=== PATIENT | male | born 1935 | race Caucasian/White ===

== ENCOUNTER 2017-04-23 04:11 | Inpatient (IN) ==
[2017-04-23] MEDS ORDERED: HYDROmorphone 2 MG/1 ML VIAL IV PRN (05:02)
[2017-04-23] MEDS ORDERED: ONDANSETRON 4 MG/2 ML VIAL IV STA (05:03)
[2017-04-23 05:07] LABS: Basophils % 0.3 % (0.0-0.8); Eosinophils % 0.1 % (0.00-10.9); Hematocrit 46.3 VOL% (42.0-52.0); Hemoglobin 16.1 GM/DL (14.0-18.0); Immature Granulocytes % 0.4 %; Immature Granulocytes Absolute 0.04 #; Lymphocytes # 1.2 10*3/uL (1.4-4.0); Lymphocytes % 11.3 % (21.2-54.2); Mean Corpuscular HGB Conc 34.8 GM/DL (32-36); Mean Corpuscular Hemoglobin 31 PG (27-34); Mean Corpuscular Volume 89.9 FL (87-102); Mean Platelet Volume 11.4 FL (9.6-12.0); Monocytes # 0.6 10*3/uL (0.11-0.8); Monocytes % 5.5 % (1.7-12.7); Neutrophils # 8.6 10*3/uL (1.4-7.4); Neutrophils % 82.4 % (38.7-73.9); Platelet Count 186 T/CUMM (130-400); Red Blood Count 5.15 MC/CUMM (3.8-5.5); Red Cell Distribution Width 12.3 % (9.3-17.3); White Blood Count 10.4 T/CUMM (4-12)
[2017-04-23] MEDS ORDERED: HYDROmorphone 2 MG/1 ML VIAL ONE (05:11)
[2017-04-23] MEDS ORDERED: ONDANSETRON 4 MG/2 ML VIAL ONE (05:13)
[2017-04-23] MEDS: SODIUM CHLORIDE 0.9% 2,400 ML IV ONE ×2 (05:18→06:26)
[2017-04-23 05:22] LABS: Albumin 4.1 G/DL (3.4-5.0); Bilirubin,Total 0.8 MG/DL (0.2-1.0); Calcium 9.1 MG/DL (8.5-10.1); Osmolality,Calculated 279.5 MOS/KG (273-304); Potassium 4.1 MMOL/L (3.5-5.1); Total Protein 7.3 G/DL (6.4-8.3)
[2017-04-23] MEDS ORDERED: ONDANSETRON 4 MG/2 ML VIAL IV PRN (06:26)
[2017-04-23] MEDS ORDERED: SODIUM CHLORIDE 0.9% 1,000 ML IV STA (06:29)
[2017-04-23] MEDS ORDERED: SODIUM CHLORIDE 0.9% 1,000 ML IV SCH (06:30)
[2017-04-23] MEDS: PANTOPRAZOLE 40 MG VIAL IV SCH (10:08)
[2017-04-23] MEDS: DEXTROSE 5% NACL 0.45% 1,000 ML IV SCH ×2 (12:18→20:18)
[2017-04-23] MEDS: HYDROmorphone 2 MG/1 ML VIAL IV PRN (12:19)
[2017-04-24] MEDS: HYDROmorphone 2 MG/1 ML VIAL IV PRN (03:04)
[2017-04-24] MEDS: DEXTROSE 5% NACL 0.45% 1,000 ML IV SCH ×3 (04:18→19:35)
[2017-04-24 06:02] LABS: Basophils % 0.2 % (0.0-0.8); Eosinophils # 0.1 10*3/uL (0.0-0.87); Hematocrit 38.2 VOL% (42.0-52.0); Immature Granulocytes % 0.3 %; Immature Granulocytes Absolute 0.02 #; Lymphocytes # 1.1 10*3/uL (1.4-4.0); Lymphocytes % 18.1 % (21.2-54.2); Mean Corpuscular HGB Conc 34.6 GM/DL (32-36); Mean Corpuscular Hemoglobin 32 PG (27-34); Mean Platelet Volume 11.4 FL (9.6-12.0); Monocytes # 0.5 10*3/uL (0.11-0.8); Monocytes % 7.6 % (1.7-12.7); Neutrophils # 4.6 10*3/uL (1.4-7.4); Neutrophils % 72.8 % (38.7-73.9); Red Blood Count 4.15 MC/CUMM (3.8-5.5); Red Cell Distribution Width 12.7 % (9.3-17.3)
[2017-04-24 06:17] LABS: Hemoglobin 13.2 GM/DL (14.0-18.0); Platelet Count 141 T/CUMM (130-400); White Blood Count 6.3 T/CUMM (4-12)
[2017-04-24 06:31] LABS: Bilirubin,Total 0.7 MG/DL (0.2-1.0); Calcium 8.1 MG/DL (8.5-10.1); Osmolality,Calculated 280.3 MOS/KG (273-304); Potassium 4.2 MMOL/L (3.5-5.1); Total Protein 5.4 G/DL (6.4-8.3)
[2017-04-24] MEDS: PANTOPRAZOLE 40 MG VIAL IV SCH (09:50)
[2017-04-25] MEDS: DEXTROSE 5% NACL 0.45% 1,000 ML IV SCH (03:35)
[2017-04-25] MEDS: PANTOPRAZOLE 40 MG VIAL IV SCH (08:49)
[2017-04-25 12:11] VITALS: BP 151/70
== END 2017-04-25 12:53 | disposition home or self-care (01) | DRG 390 ==
LOC: N.ED 04:11 → N.EDINP 06:26 → N.2E 06:47
PROVIDERS: ADMIT Internal Medicine; ATTEND Internal Medicine

== ENCOUNTER 2017-06-11 20:02 | Inpatient (IN) ==
[2017-06-11 21:19] LABS: Basophils % 0.3 % (0.0-0.8); Eosinophils % 0.3 % (0.00-10.9); Hematocrit 43.2 VOL% (42.0-52.0); Hemoglobin 14.9 GM/DL (14.0-18.0); Immature Granulocytes % 0.4 %; Immature Granulocytes Absolute 0.04 #; Lymphocytes # 1.2 10*3/uL (1.4-4.0); Lymphocytes % 11.1 % (21.2-54.2); Mean Corpuscular HGB Conc 34.5 GM/DL (32-36); Mean Corpuscular Hemoglobin 31 PG (27-34); Mean Corpuscular Volume 90.2 FL (87-102); Mean Platelet Volume 11.4 FL (9.6-12.0); Monocytes # 0.7 10*3/uL (0.11-0.8); Monocytes % 6.4 % (1.7-12.7); Neutrophils # 8.6 10*3/uL (1.4-7.4); Neutrophils % 81.5 % (38.7-73.9); Platelet Count 180 T/CUMM (130-400); Red Blood Count 4.79 MC/CUMM (3.8-5.5); Red Cell Distribution Width 12.5 % (9.3-17.3); White Blood Count 10.5 T/CUMM (4-12)
[2017-06-11 21:31] LABS: INR 0.9
[2017-06-11] MEDS ORDERED: HYDROmorphone 2 MG/1 ML VIAL IV STA (21:39)
[2017-06-11] MEDS ORDERED: ONDANSETRON 4 MG/2 ML VIAL IV STA (21:39)
[2017-06-11 21:40] LABS: Albumin 4.3 G/DL (3.4-5.0); Bilirubin,Total 0.8 MG/DL (0.2-1.0); Calcium 9.4 MG/DL (8.5-10.1); Osmolality,Calculated 278.5 MOS/KG (273-304); Total Protein 7.4 G/DL (6.4-8.3)
[2017-06-11] MEDS ORDERED: ONDANSETRON 4 MG/2 ML VIAL ONE (21:46)
[2017-06-11] MEDS ORDERED: HYDROmorphone 2 MG/1 ML VIAL ONE (21:46)
[2017-06-11] MEDS ORDERED: ACETAMINOPHEN 325 MG TABLET PO PRN (22:16)
[2017-06-11] MEDS: DEXTROSE 5% LACTATED RINGERS 1,000 ML IV SCH (23:49)
[2017-06-12] MEDS: ONDANSETRON 4 MG/2 ML VIAL IV PRN ×4 (01:59→20:10)
[2017-06-12] MEDS: HYDROmorphone 2 MG/1 ML VIAL IV PRN ×4 (02:00→20:10)
[2017-06-12 02:33] LABS: Apearance,Urine CLEAR (Clear); Bilirubin,Urine Negative (Negative); Blood, Urine Negative (Negative); Glucose,Urine (UA) Negative (Negative); Ketones,Urine 20 mg/dL (Negative); Nitrite,Urine Negative (Negative); Protein,Urine Negative; RBC,Urine 1 /HPF (0-4); Squamous Epithelial Cell,Urine Occasional /HPF (0-10); Urine Color Yellow (Yellow); Urine Specific Gravity > 1.060 (1.001-1.035); Urine Urobilinogen < 2.0 EU/DL (0.2-1.0); WBC,Urine <1 /HPF (0-6)
[2017-06-12] MEDS: DEXTROSE 5% LACTATED RINGERS 1,000 ML IV SCH ×3 (07:58→23:20)
[2017-06-12] MEDS ORDERED: cefOXitin 2,000 MG in SYRINGE 1 EACH IV ONE (07:59)
[2017-06-12] MEDS ORDERED: PANTOPRAZOLE 40 MG TABLET PO SCH (09:00)
[2017-06-12] MEDS: ENOXAPARIN 40 MG/0.4 ML SYRINGE SUBCUT SCH (09:21)
[2017-06-12] MEDS ORDERED: PROMETHAZINE 25 MG/1 ML VIAL IM PRN (20:09)
[2017-06-12] MEDS: PANTOPRAZOLE 40 MG VIAL IV SCH (21:43)
[2017-06-13] MEDS: HYDROmorphone 2 MG/1 ML VIAL IV PRN (01:10)
[2017-06-13 06:48] LABS: Basophils % 0.2 % (0.0-0.8); Eosinophils % 0.7 % (0.00-10.9); Hematocrit 39.4 VOL% (42.0-52.0); Hemoglobin 13.1 GM/DL (14.0-18.0); Immature Granulocytes % 0.2 %; Immature Granulocytes Absolute 0.01 #; Lymphocytes # 1.3 10*3/uL (1.4-4.0); Lymphocytes % 23.4 % (21.2-54.2); Mean Corpuscular HGB Conc 33.2 GM/DL (32-36); Mean Corpuscular Hemoglobin 32 PG (27-34); Mean Corpuscular Volume 94.9 FL (87-102); Mean Platelet Volume 11.6 FL (9.6-12.0); Monocytes # 0.5 10*3/uL (0.11-0.8); Monocytes % 8.8 % (1.7-12.7); Neutrophils # 3.7 10*3/uL (1.4-7.4); Neutrophils % 66.7 % (38.7-73.9); Platelet Count 145 T/CUMM (130-400); Red Blood Count 4.15 MC/CUMM (3.8-5.5); Red Cell Distribution Width 12.9 % (9.3-17.3); White Blood Count 5.5 T/CUMM (4-12)
[2017-06-13 07:12] LABS: Eosinophils 2 % (0-10); Giant Platelets Few; Hypochromasia 1+; Lymphocytes 22 % (20-55); Ovalocytes Slight; Platelet Estimate Normal; Segmented Neutrophils 68 % (50-85); Total Cells Counted 100
[2017-06-13 07:15] LABS: Calcium 8.3 MG/DL (8.5-10.1); Osmolality,Calculated 282.1 MOS/KG (273-304); Potassium 3.9 MMOL/L (3.5-5.1)
[2017-06-13] MEDS: DEXTROSE 5% LACTATED RINGERS 1,000 ML IV SCH ×2 (07:30→17:54)
[2017-06-13] MEDS: PANTOPRAZOLE 40 MG VIAL IV SCH (09:03)
[2017-06-13] MEDS ORDERED: ROPIVACAINE 0.5% 30 ML VIAL ONE (12:13)
[2017-06-13] MEDS ORDERED: MIDAZOLAM 2 MG/2 ML VIAL ONE ×3 (12:16→14:24)
[2017-06-13] MEDS ORDERED: MIDAZOLAM 2 MG/2 ML VIAL IV ONE (13:24)
[2017-06-13] MEDS ORDERED: NALOXONE 0.4 MG/ML VIAL IV PRN (14:17)
[2017-06-13] MEDS ORDERED: GLYCOPYRROLATE 0.4 MG/2 ML VIAL ONE (14:24)
[2017-06-13] MEDS ORDERED: fentaNYL 100 MCG/2 ML VIAL ONE (14:24)
[2017-06-13] MEDS ORDERED: PROPOFOL 200 MG/20 ML VIAL IV ONE (14:24)
[2017-06-13] MEDS ORDERED: KETOROLAC 30 MG/1 ML VIAL ONE (14:24)
[2017-06-13] MEDS ORDERED: ONDANSETRON 4 MG/2 ML VIAL ONE (14:24)
[2017-06-13] MEDS ORDERED: SEVOFLURANE 1 UNIT/15 MINUTE INH ONE (14:24)
[2017-06-13] MEDS ORDERED: NEOSTIGMINE 10 MG/10 ML VIAL ONE (14:25)
[2017-06-13] MEDS ORDERED: ROCURONIUM 100 MG/10 ML VIAL IV ONE (14:25)
[2017-06-13] MEDS ORDERED: ACETAMINOPHEN 1,000 MG/100 ML VIAL IV ONE (14:25)
[2017-06-13] MEDS ORDERED: LACTATED RINGERS 1,000 ML IV ONE (14:25)
[2017-06-13] MEDS ORDERED: HYDROmorphone PCA 30 MG/30 ML SYRINGE IV ONE (14:34)
[2017-06-13] MEDS: HYDROmorphone PCA 30 MG/30 ML SYRINGE IV SCH (14:36)
[2017-06-13] MEDS: KETOROLAC 15 MG/1 ML VIAL IV SCH ×2 (16:49→20:42)
[2017-06-14] MEDS: DEXTROSE 5% LACTATED RINGERS 1,000 ML IV SCH ×2 (01:36→09:07)
[2017-06-14] MEDS: KETOROLAC 15 MG/1 ML VIAL IV SCH ×4 (02:25→20:38)
[2017-06-14 05:40] LABS: Basophils % 0.2 % (0.0-0.8); Eosinophils % 0.2 % (0.00-10.9); Hematocrit 37.4 VOL% (42.0-52.0); Hemoglobin 12.3 GM/DL (14.0-18.0); Immature Granulocytes % 0.2 %; Immature Granulocytes Absolute 0.01 #; Lymphocytes % 18.4 % (21.2-54.2); Mean Corpuscular HGB Conc 32.9 GM/DL (32-36); Mean Corpuscular Hemoglobin 31 PG (27-34); Mean Corpuscular Volume 95.2 FL (87-102); Mean Platelet Volume 11.8 FL (9.6-12.0); Monocytes # 0.7 10*3/uL (0.11-0.8); Monocytes % 12.1 % (1.7-12.7); Neutrophils # 3.7 10*3/uL (1.4-7.4); Neutrophils % 68.9 % (38.7-73.9); Platelet Count 126 T/CUMM (130-400); Red Blood Count 3.93 MC/CUMM (3.8-5.5); Red Cell Distribution Width 12.6 % (9.3-17.3); White Blood Count 5.4 T/CUMM (4-12)
[2017-06-14 06:02] LABS: Calcium 7.7 MG/DL (8.5-10.1); Magnesium 1.8 MG/DL (1.8-2.4); Osmolality,Calculated 279.4 MOS/KG (273-304); Potassium 3.8 MMOL/L (3.5-5.1)
[2017-06-14 06:28] LABS: Eosinophils 1 % (0-10); Giant Platelets Few; Hypochromasia 1+; Lymphocytes 17 % (20-55); Platelet Estimate Normal; Segmented Neutrophils 71 % (50-85); Total Cells Counted 100
[2017-06-14] MEDS: PANTOPRAZOLE 40 MG VIAL IV SCH (08:52)
[2017-06-14] MEDS: METOPROLOL TARTRATE 25 MG TABLET PO SCH (08:52)
[2017-06-14] MEDS: DEXT 5% NACL 0.45% KCL 20 MEQ 20 MEQ/1,000 ML BAG IV SCH ×2 (08:52→23:47)
[2017-06-14] MEDS ORDERED: ALUMINUM/MAGNES/SIMETH MAX STR 30 ML UDCUP PO PRN (12:18)
[2017-06-14] MEDS: ONDANSETRON 4 MG/2 ML VIAL IV PRN (20:33)
[2017-06-15] MEDS: KETOROLAC 15 MG/1 ML VIAL IV SCH ×4 (01:58→20:27)
[2017-06-15 05:27] LABS: Basophils % 0.2 % (0.0-0.8); Eosinophils # 0.1 10*3/uL (0.0-0.87); Eosinophils % 1.4 % (0.00-10.9); Hematocrit 33.7 VOL% (42.0-52.0); Hemoglobin 11.6 GM/DL (14.0-18.0); Immature Granulocytes % 0.4 %; Immature Granulocytes Absolute 0.02 #; Lymphocytes # 0.9 10*3/uL (1.4-4.0); Lymphocytes % 18.3 % (21.2-54.2); Mean Corpuscular HGB Conc 34.4 GM/DL (32-36); Mean Corpuscular Hemoglobin 31 PG (27-34); Mean Corpuscular Volume 91.3 FL (87-102); Mean Platelet Volume 11.3 FL (9.6-12.0); Monocytes # 0.7 10*3/uL (0.11-0.8); Monocytes % 13.2 % (1.7-12.7); Neutrophils # 3.3 10*3/uL (1.4-7.4); Neutrophils % 66.5 % (38.7-73.9); Platelet Count 125 T/CUMM (130-400); Red Blood Count 3.69 MC/CUMM (3.8-5.5); Red Cell Distribution Width 12.2 % (9.3-17.3); White Blood Count 4.9 T/CUMM (4-12)
[2017-06-15 05:55] LABS: Calcium 7.5 MG/DL (8.5-10.1); Magnesium 1.9 MG/DL (1.8-2.4); Osmolality,Calculated 277.5 MOS/KG (273-304); Potassium 3.9 MMOL/L (3.5-5.1)
[2017-06-15 06:35] LABS: Hypochromasia Slight; Microcytosis Slight
[2017-06-15] MEDS: METOPROLOL TARTRATE 25 MG TABLET PO SCH (08:15)
[2017-06-15] MEDS: PANTOPRAZOLE 40 MG VIAL IV SCH (08:15)
[2017-06-15] MEDS: ENOXAPARIN 40 MG/0.4 ML SYRINGE SUBCUT SCH (08:15)
[2017-06-15] MEDS: HYDROmorphone PCA 30 MG/30 ML SYRINGE IV SCH (09:01)
[2017-06-15] MEDS ORDERED: HYDROmorphone 2 MG/1 ML VIAL IV PRN (12:06)
[2017-06-15] MEDS: DEXT 5% NACL 0.45% KCL 20 MEQ 20 MEQ/1,000 ML BAG IV SCH (13:10)
[2017-06-16] MEDS: KETOROLAC 15 MG/1 ML VIAL IV SCH ×2 (02:42→09:50)
[2017-06-16 08:08] VITALS: BP 141/68
[2017-06-16] MEDS: METOPROLOL TARTRATE 25 MG TABLET PO SCH (09:53)
[2017-06-16] MEDS: PANTOPRAZOLE 40 MG VIAL IV SCH (09:54)
[2017-06-16] MEDS: ENOXAPARIN 40 MG/0.4 ML SYRINGE SUBCUT SCH (09:55)
== END 2017-06-16 13:45 | disposition home or self-care (01) | DRG 331 ==
LOC: N.ED 20:02 → N.EDINP 22:16 → N.3E 22:36
PROVIDERS: ADMIT Surgery; ATTEND Surgery

== ENCOUNTER 2018-04-26 15:06 | Observation (INO) ==
[2018-04-26] MEDS ORDERED: ONDANSETRON 4 MG/2 ML VIAL IV STA ×2 (15:53→19:22)
[2018-04-26] MEDS ORDERED: METOPROLOL TARTRATE 5 MG/5 ML VIAL IV STA (15:53)
[2018-04-26] MEDS ORDERED: fentaNYL 100 MCG/2 ML VIAL IV STA ×2 (15:55→17:45)
[2018-04-26 16:18] LABS: Basophils % 0.2 % (0.0-0.8); Eosinophils % 0.4 % (0.00-10.9); Hematocrit 43.1 VOL% (42.0-52.0); Hemoglobin 14.6 GM/DL (14.0-18.0); Immature Granulocytes % 0.2 %; Immature Granulocytes Absolute 0.02 #; Lymphocytes # 1.5 10*3/uL (1.4-4.0); Mean Corpuscular HGB Conc 33.9 GM/DL (32-36); Mean Corpuscular Hemoglobin 31 PG (27-34); Mean Corpuscular Volume 91.7 FL (87-102); Mean Platelet Volume 11.2 FL (9.6-12.0); Monocytes # 0.5 10*3/uL (0.11-0.8); Neutrophils # 7.1 10*3/uL (1.4-7.4); Neutrophils % 78.2 % (38.7-73.9); Platelet Count 159 T/CUMM (130-400); Red Cell Distribution Width 12.1 % (9.3-17.3)
[2018-04-26 16:46] LABS: Lactic Acid 2.3 MMOL/L (0.4-2.0)
[2018-04-26 16:53] LABS: Alanine Aminotransferase 26 U/L (16-61); Alkaline Phosphatase 26 U/L (45-117); Aspartate Amino Transferase 21 U/L (0-37); Blood Urea Nitrogen 15 MG/DL (7-18); Calcium 9.6 MG/DL (8.5-10.1); Glucose 114 MG/DL (74-106); Osmolality,Calculated 280.4 MOS/KG (273-304); Potassium 3.8 MMOL/L (3.5-5.1); Sodium 140 MMOL/L (136-145); Total Protein 7.4 G/DL (6.4-8.3)
[2018-04-26 17:07] LABS: Apearance,Urine CLEAR (Clear); Bilirubin,Urine Negative (Negative); Blood, Urine Negative (Negative); Glucose,Urine (UA) Negative (Negative); Hyaline Casts,Urine 1 /LPF (0-3); Ketones,Urine Negative (Negative); Mucus,Urine Occasional /LPF (Occasional); Nitrite,Urine Negative (Negative); Protein,Urine Negative; RBC,Urine <1 /HPF (0-4); Urine Color Yellow (Yellow); Urine Urobilinogen < 2.0 EU/DL (0.2-1.0); WBC,Urine 1 /HPF (0-6)
[2018-04-26] MEDS ORDERED: LACTATED RINGERS 1,000 ML IV ONE (17:21)
[2018-04-26] MEDS ORDERED: ONDANSETRON 4 MG/2 ML VIAL IV PRN (19:19)
[2018-04-26] MEDS ORDERED: HYDROmorphone 2 MG/1 ML VIAL IV STA (19:56)
[2018-04-26] MEDS: DEXTROSE 5% LACTATED RINGERS 1,000 ML IV SCH (20:48)
[2018-04-26] MEDS ORDERED: PHENOL 1.4% THROAT SPRAY 177 ML BOTTLE PO PRN (22:00)
[2018-04-26] MEDS: HYDROmorphone 2 MG/1 ML VIAL IV PRN (22:36)
[2018-04-27] MEDS: HYDROmorphone 2 MG/1 ML VIAL IV PRN ×3 (02:53→19:36)
[2018-04-27] MEDS: DEXTROSE 5% LACTATED RINGERS 1,000 ML IV SCH ×3 (03:51→19:40)
[2018-04-27 05:24] LABS: Basophils % 0.3 % (0.0-0.8); Eosinophils % 0.3 % (0.00-10.9); Hematocrit 41.2 VOL% (42.0-52.0); Hemoglobin 13.9 GM/DL (14.0-18.0); Immature Granulocytes % 0.3 %; Immature Granulocytes Absolute 0.02 #; Lymphocytes # 1.3 10*3/uL (1.4-4.0); Mean Corpuscular HGB Conc 33.7 GM/DL (32-36); Mean Corpuscular Hemoglobin 31 PG (27-34); Mean Corpuscular Volume 92.4 FL (87-102); Mean Platelet Volume 11.1 FL (9.6-12.0); Monocytes # 0.5 10*3/uL (0.11-0.8); Monocytes % 7.1 % (1.7-12.7); Neutrophils # 5.6 10*3/uL (1.4-7.4); Platelet Count 147 T/CUMM (130-400); Red Blood Count 4.46 MC/CUMM (3.8-5.5); Red Cell Distribution Width 12.2 % (9.3-17.3); White Blood Count 7.4 T/CUMM (4-12)
[2018-04-27 06:03] LABS: Albumin 3.2 G/DL (3.4-5.0); Bilirubin,Total 0.8 MG/DL (0.2-1.0); Calcium 8.6 MG/DL (8.5-10.1); Osmolality,Calculated 279.4 MOS/KG (273-304); Potassium 3.8 MMOL/L (3.5-5.1); Total Protein 6.3 G/DL (6.4-8.3)
[2018-04-27] MEDS: ENOXAPARIN 40 MG/0.4 ML SYRINGE SUBCUT SCH (08:31)
[2018-04-28] MEDS: HYDROmorphone 2 MG/1 ML VIAL IV PRN (01:37)
[2018-04-28] MEDS: DEXTROSE 5% LACTATED RINGERS 1,000 ML IV SCH ×3 (04:58→21:22)
[2018-04-28 08:56] LABS: Calcium 8.4 MG/DL (8.5-10.1); Osmolality,Calculated 277.4 MOS/KG (273-304); Potassium 3.6 MMOL/L (3.5-5.1)
[2018-04-28] MEDS: ENOXAPARIN 40 MG/0.4 ML SYRINGE SUBCUT SCH (09:10)
[2018-04-29] MEDS: DEXTROSE 5% LACTATED RINGERS 1,000 ML IV SCH (05:39)
[2018-04-29] MEDS: ENOXAPARIN 40 MG/0.4 ML SYRINGE SUBCUT SCH (09:12)
[2018-04-29 12:26] VITALS: BP 139/85
== END 2018-04-29 13:41 | disposition home or self-care (01) ==
LOC: N.ED 15:06 → N.EDINP 15:06 → N.3E 20:19
PROVIDERS: ADMIT Surgery; ATTEND Surgery

== ENCOUNTER 2018-08-22 04:39 | Observation (INO) ==
[2018-08-22] MEDS ORDERED: SODIUM CHLORIDE 0.9% 1,000 ML IV STA (06:12)
[2018-08-22] MEDS ORDERED: ONDANSETRON 4 MG/2 ML VIAL IV STA (06:12)
[2018-08-22] MEDS ORDERED: fentaNYL 100 MCG/2 ML VIAL IV STA ×2 (06:13→07:56)
[2018-08-22 06:19] LABS: Basophils % 0.4 % (0.0-0.8); Eosinophils # 0.1 10*3/uL (0.0-0.87); Eosinophils % 1.1 % (0.00-10.9); Hematocrit 44.6 VOL% (42.0-52.0); Hemoglobin 14.5 GM/DL (14.0-18.0); Immature Granulocytes % 0.7 %; Immature Granulocytes Absolute 0.06 #; Lymphocytes # 1.2 10*3/uL (1.4-4.0); Lymphocytes % 14.3 % (21.2-54.2); Mean Corpuscular HGB Conc 32.5 GM/DL (32-36); Mean Corpuscular Hemoglobin 31 PG (27-34); Mean Corpuscular Volume 94.7 FL (87-102); Mean Platelet Volume 11.2 FL (9.6-12.0); Monocytes # 0.5 10*3/uL (0.11-0.8); Neutrophils # 6.6 10*3/uL (1.4-7.4); Neutrophils % 77.5 % (38.7-73.9); Platelet Count 148 T/CUMM (130-400); Red Blood Count 4.71 MC/CUMM (3.8-5.5); Red Cell Distribution Width 13.1 % (9.3-17.3); White Blood Count 8.5 T/CUMM (4-12)
[2018-08-22 06:32] LABS: Albumin 3.7 G/DL (3.4-5.0); Bilirubin,Total 0.7 MG/DL (0.2-1.0); Calcium 9.2 MG/DL (8.5-10.1); Osmolality,Calculated 282.4 MOS/KG (273-304); Potassium 3.8 MMOL/L (3.5-5.1); Total Protein 7.2 G/DL (6.4-8.3)
[2018-08-22 07:05] LABS: Apearance,Urine CLEAR (Clear); Bilirubin,Urine Negative (Negative); Blood, Urine Negative (Negative); Glucose,Urine (UA) Negative (Negative); Ketones,Urine Negative (Negative); Mucus,Urine Occasional /LPF (Occasional); Nitrite,Urine Negative (Negative); Protein,Urine Negative; RBC,Urine 2 /HPF (0-4); Urine Color Yellow (Yellow); Urine Specific Gravity 1.014 (1.001-1.035); Urine Urobilinogen < 2.0 EU/DL (0.2-1.0); WBC,Urine 1 /HPF (0-6)
[2018-08-22] MEDS ORDERED: ACETAMINOPHEN 325 MG TABLET PO PRN (08:02)
[2018-08-22] MEDS ORDERED: ONDANSETRON 4 MG/2 ML VIAL IV PRN (08:02)
[2018-08-22] MEDS ORDERED: PROMETHAZINE 25 MG/1 ML VIAL IM PRN (08:02)
[2018-08-22 08:35] LABS: Risk Ratio 3.31; Thyroid Stimulating Hormone 6.32 uIU/ml (0.358-3.74); VLDL CHOLESTEROL 14.6 MG/DL
[2018-08-22] MEDS: LACTATED RINGERS 1,000 ML IV SCH ×3 (09:50→23:55)
[2018-08-22] MEDS ORDERED: POLYVINYL ALCOHOL 1.4% OPH SOLN 15 ML BOTTLE BOTH EYES PRN (10:45)
[2018-08-22] MEDS ORDERED: KETOROLAC 15 MG/1 ML VIAL IV PRN (11:53)
[2018-08-23 05:34] LABS: Basophils % 0.4 % (0.0-0.8); Eosinophils # 0.1 10*3/uL (0.0-0.87); Hematocrit 39.2 VOL% (42.0-52.0); Hemoglobin 12.7 GM/DL (14.0-18.0); Immature Granulocytes % 0.4 %; Immature Granulocytes Absolute 0.02 #; Lymphocytes # 1.3 10*3/uL (1.4-4.0); Lymphocytes % 27.7 % (21.2-54.2); Mean Corpuscular HGB Conc 32.4 GM/DL (32-36); Mean Corpuscular Hemoglobin 31 PG (27-34); Mean Corpuscular Volume 95.1 FL (87-102); Monocytes # 0.4 10*3/uL (0.11-0.8); Monocytes % 8.1 % (1.7-12.7); Neutrophils # 2.8 10*3/uL (1.4-7.4); Neutrophils % 61.4 % (38.7-73.9); Platelet Count 117 T/CUMM (130-400); Red Blood Count 4.12 MC/CUMM (3.8-5.5); Red Cell Distribution Width 13.2 % (9.3-17.3); White Blood Count 4.6 T/CUMM (4-12)
[2018-08-23 05:51] LABS: Albumin 2.9 G/DL (3.4-5.0); Bilirubin,Total 0.7 MG/DL (0.2-1.0); Osmolality,Calculated 282.1 MOS/KG (273-304); Total Protein 5.6 G/DL (6.4-8.3)
[2018-08-23] MEDS: LACTATED RINGERS 1,000 ML IV SCH (08:53)
[2018-08-23] MEDS ORDERED: METOPROLOL TARTRATE 25 MG TABLET PO SCH (09:00)
[2018-08-23] MEDS ORDERED: [UNRECOGNIZED DRUG - OTHER] PO SCH (09:00)
[2018-08-23 11:25] VITALS: BP 121/61
== END 2018-08-23 12:14 | disposition home or self-care (01) ==
LOC: N.EDINP 04:39 → N.ED 04:39 → SUATTDRO 08:02 → N.EDINP 09:07 → N.5E 09:22
PROVIDERS: ADMIT Internal Medicine; ATTEND Internal Medicine Nephrology

== ENCOUNTER 2019-02-21 01:14 | Inpatient (IN) ==
[2019-02-21] MEDS ORDERED: PANTOPRAZOLE 40 MG VIAL IV STA (01:30)
[2019-02-21] MEDS ORDERED: ONDANSETRON 4 MG/2 ML VIAL IV STA (01:30)
[2019-02-21] MEDS ORDERED: HYDROmorphone 2 MG/1 ML VIAL IV STA (01:30)
[2019-02-21] MEDS ORDERED: SODIUM CHLORIDE 0.9% 500 ML IV STA (01:30)
[2019-02-21 02:14] LABS: Basophils # 0.1 10*3/uL (0.0-0.2); Basophils % 0.5 % (0.0-0.8); Eosinophils # 0.1 10*3/uL (0.0-0.87); Eosinophils % 0.5 % (0.00-10.9); Hematocrit 44.6 VOL% (42.0-52.0); Hemoglobin 15.3 GM/DL (14.0-18.0); Immature Granulocytes % 0.4 %; Immature Granulocytes Absolute 0.04 #; Lymphocytes % 9.9 % (21.2-54.2); Mean Corpuscular HGB Conc 34.3 GM/DL (32-36); Mean Corpuscular Volume 90.1 FL (87-102); Mean Platelet Volume 11.7 FL (9.6-12.0); Monocytes % 6.3 % (1.7-12.7); Neutrophils % 82.4 % (38.7-73.9); Platelet Count 164 T/CUMM (130-400); Red Blood Count 4.95 MC/CUMM (3.8-5.5); Red Cell Distribution Width 12.6 % (9.3-17.3); White Blood Count 10.2 T/CUMM (4-12)
[2019-02-21 02:45] LABS: Albumin 3.9 G/DL (3.4-5.0); Bilirubin,Total 0.8 MG/DL (0.2-1.0); Calcium 9.4 MG/DL (8.5-10.1); Osmolality,Calculated 283.3 MOS/KG (273-304); Total Protein 7.5 G/DL (6.4-8.3)
[2019-02-21 05:02] LABS: Apearance,Urine CLEAR (Clear); Bilirubin,Urine Negative (Negative); Blood, Urine Negative (Negative); Glucose,Urine (UA) Negative (Negative); Hyaline Casts,Urine 1 /LPF (0-3); Ketones,Urine 5 mg/dL (Negative); Mucus,Urine Occasional /LPF (Occasional); Nitrite,Urine Negative (Negative); Protein,Urine Negative; RBC,Urine 3 /HPF (0-4); Urine Color Yellow (Yellow); Urine Specific Gravity > 1.060 (1.001-1.035); Urine Urobilinogen < 2.0 EU/DL (0.2-1.0); WBC,Urine 1 /HPF (0-6)
[2019-02-21] MEDS ORDERED: HYDROmorphone 2 MG/1 ML VIAL IV PRN (05:08)
[2019-02-21] MEDS ORDERED: ACETAMINOPHEN 325 MG TABLET PO PRN (05:08)
[2019-02-21] MEDS: ONDANSETRON 4 MG/2 ML VIAL IV PRN ×3 (06:29→19:22)
[2019-02-21] MEDS: SODIUM CHLORIDE 0.9% 1,000 ML IV SCH ×2 (06:29→15:43)
[2019-02-21] MEDS: FAMOTIDINE 20 MG/2 ML VIAL IV SCH ×2 (09:03→20:38)
[2019-02-22] MEDS: SODIUM CHLORIDE 0.9% 1,000 ML IV SCH (01:09)
[2019-02-22 05:30] LABS: Basophils % 0.3 % (0.0-0.8); Eosinophils # 0.1 10*3/uL (0.0-0.87); Eosinophils % 1.6 % (0.00-10.9); Hematocrit 37.5 VOL% (42.0-52.0); Hemoglobin 12.4 GM/DL (14.0-18.0); Immature Granulocytes % 0.2 %; Immature Granulocytes Absolute 0.01 #; Lymphocytes # 1.3 10*3/uL (1.4-4.0); Lymphocytes % 22.3 % (21.2-54.2); Mean Corpuscular HGB Conc 33.1 GM/DL (32-36); Mean Corpuscular Volume 93.1 FL (87-102); Mean Platelet Volume 11.2 FL (9.6-12.0); Monocytes % 9.1 % (1.7-12.7); Neutrophils % 66.5 % (38.7-73.9); Platelet Count 132 T/CUMM (130-400); Red Blood Count 4.03 MC/CUMM (3.8-5.5); Red Cell Distribution Width 12.9 % (9.3-17.3); White Blood Count 5.7 T/CUMM (4-12)
[2019-02-22 05:52] LABS: Albumin 2.8 G/DL (3.4-5.0); Bilirubin,Total 1.5 MG/DL (0.2-1.0); Calcium 8.1 MG/DL (8.5-10.1); Osmolality,Calculated 287.7 MOS/KG (273-304); Total Protein 5.6 G/DL (6.4-8.3)
[2019-02-22] MEDS: FAMOTIDINE 20 MG/2 ML VIAL IV SCH (09:06)
[2019-02-22 13:07] VITALS: BP 134/78
== END 2019-02-22 13:50 | disposition home or self-care (01) | DRG 390 ==
LOC: N.ED 01:14 → N.EDINP 04:30 → N.3E 04:53
PROVIDERS: ADMIT Surgery; ATTEND Surgery

== ENCOUNTER 2019-05-02 16:14 | Inpatient (IN) ==
[2019-05-02] MEDS ORDERED: SODIUM CHLORIDE 0.9% 500 ML IV STA (19:49)
[2019-05-02] MEDS ORDERED: ONDANSETRON 4 MG/2 ML VIAL IV STA (19:49)
[2019-05-02] MEDS ORDERED: fentaNYL 100 MCG/2 ML VIAL IV STA (19:50)
[2019-05-02] MEDS ORDERED: FAMOTIDINE 20 MG/2 ML VIAL IV STA (19:50)
[2019-05-02 20:14] LABS: Basophils % 0.2 % (0.0-0.8); Eosinophils % 0.1 % (0.00-10.9); Hematocrit 42.8 VOL% (42.0-52.0); Hemoglobin 14.8 GM/DL (14.0-18.0); Immature Granulocytes % 0.3 %; Immature Granulocytes Absolute 0.03 #; Lymphocytes # 0.9 10*3/uL (1.4-4.0); Lymphocytes % 8.4 % (21.2-54.2); Mean Corpuscular HGB Conc 34.6 GM/DL (32-36); Mean Corpuscular Volume 90.3 FL (87-102); Mean Platelet Volume 10.8 FL (9.6-12.0); Monocytes % 5.3 % (1.7-12.7); Neutrophils % 85.7 % (38.7-73.9); Platelet Count 181 T/CUMM (130-400); Red Blood Count 4.74 MC/CUMM (3.8-5.5); Red Cell Distribution Width 12.5 % (9.3-17.3); White Blood Count 10.2 T/CUMM (4-12)
[2019-05-02 20:39] LABS: Albumin 4.1 G/DL (3.4-5.0); Bilirubin,Total 0.7 MG/DL (0.2-1.0); Calcium 9.3 MG/DL (8.5-10.1); Osmolality,Calculated 277.7 MOS/KG (273-304)
[2019-05-02] MEDS ORDERED: KETOROLAC 30 MG/1 ML VIAL IM STA (21:05)
[2019-05-02 21:22] LABS: Apearance,Urine CLEAR (Clear); Bilirubin,Urine Negative (Negative); Blood, Urine Negative (Negative); Glucose,Urine (UA) Negative (Negative); Hyaline Casts,Urine 5 /LPF (0-3); Ketones,Urine 20 mg/dL (Negative); Mucus,Urine Many /LPF (Occasional); Nitrite,Urine Negative (Negative); Protein,Urine 30 MG/DL; RBC,Urine 3 /HPF (0-4); Squamous Epithelial Cell,Urine Occasional /HPF (0-10); Urine Color Yellow (Yellow); Urine Specific Gravity 1.023 (1.001-1.035); Urine Urobilinogen < 2.0 EU/DL (0.2-1.0); WBC,Urine <1 /HPF (0-6)
[2019-05-02] MEDS ORDERED: KETOROLAC 15 MG/1 ML VIAL IV ONE (23:47)
[2019-05-03] MEDS: SODIUM CHLORIDE 0.9% 1,000 ML IV SCH ×3 (01:46→23:40)
[2019-05-03] MEDS: ONDANSETRON 4 MG/2 ML VIAL IV PRN ×2 (02:24→08:57)
[2019-05-03] MEDS: fentaNYL 100 MCG/2 ML VIAL IV PRN ×3 (02:25→11:25)
[2019-05-03] MEDS: FAMOTIDINE 20 MG/2 ML VIAL IV SCH ×2 (08:59→20:02)
[2019-05-03] MEDS ORDERED: PHENOL 1.4% THROAT SPRAY 177 ML BOTTLE PO PRN (10:29)
[2019-05-03] MEDS: PROMETHAZINE 25 MG/1 ML VIAL IM PRN ×2 (13:33→20:03)
[2019-05-03] MEDS: HYDROmorphone 2 MG/1 ML VIAL IV PRN ×2 (15:34→19:59)
[2019-05-03] MEDS ORDERED: LABETALOL 100 MG/20 ML VIAL IV PRN (17:36)
[2019-05-04] MEDS: SODIUM CHLORIDE 0.9% 1,000 ML IV SCH ×3 (01:06→17:31)
[2019-05-04] MEDS: HYDROmorphone 2 MG/1 ML VIAL IV PRN ×4 (03:09→21:16)
[2019-05-04] MEDS: PROMETHAZINE 25 MG/1 ML VIAL IM PRN ×3 (03:09→17:28)
[2019-05-04 05:31] LABS: Basophils % 0.2 % (0.0-0.8); Eosinophils % 0.1 % (0.00-10.9); Hematocrit 41.6 VOL% (42.0-52.0); Hemoglobin 13.6 GM/DL (14.0-18.0); Immature Granulocytes % 0.4 %; Immature Granulocytes Absolute 0.03 #; Lymphocytes # 0.9 10*3/uL (1.4-4.0); Lymphocytes % 10.6 % (21.2-54.2); Mean Corpuscular HGB Conc 32.7 GM/DL (32-36); Mean Corpuscular Volume 94.8 FL (87-102); Mean Platelet Volume 11.4 FL (9.6-12.0); Monocytes % 6.6 % (1.7-12.7); Neutrophils % 82.1 % (38.7-73.9); Platelet Count 165 T/CUMM (130-400); Red Blood Count 4.39 MC/CUMM (3.8-5.5); Red Cell Distribution Width 12.6 % (9.3-17.3); White Blood Count 8.4 T/CUMM (4-12)
[2019-05-04 06:02] LABS: Calcium 8.2 MG/DL (8.5-10.1); Osmolality,Calculated 287.7 MOS/KG (273-304)
[2019-05-04] MEDS: FAMOTIDINE 20 MG/2 ML VIAL IV SCH ×2 (09:51→21:12)
[2019-05-04] MEDS: ONDANSETRON 4 MG/2 ML VIAL IV PRN ×2 (12:28→19:24)
[2019-05-05] MEDS: SODIUM CHLORIDE 0.9% 1,000 ML IV SCH (01:29)
[2019-05-05 07:34] VITALS: BP 133/56
[2019-05-05] MEDS: FAMOTIDINE 20 MG/2 ML VIAL IV SCH (08:17)
[2019-05-05] MEDS ORDERED: METOPROLOL TARTRATE 25 MG TABLET PO SCH (09:00)
== END 2019-05-05 08:30 | disposition home or self-care (01) | DRG 390 ==
LOC: N.ED 16:14 → N.EDINP 23:23 → N.3E 05-03 00:39
PROVIDERS: ADMIT Surgery; ATTEND Surgery

== ENCOUNTER 2020-06-29 21:22 | Inpatient (IN) ==
[2020-06-29] MEDS ORDERED: ONDANSETRON 4 MG/2 ML VIAL IV STA ×2 (22:16→23:34)
[2020-06-29] MEDS ORDERED: HYDROmorphone 2 MG/1 ML VIAL IV STA ×2 (22:16→23:34)
[2020-06-29] MEDS ORDERED: SODIUM CHLORIDE 0.9% 500 ML IV STA (22:16)
[2020-06-29] MEDS ORDERED: PANTOPRAZOLE 40 MG VIAL IV STA (22:16)
[2020-06-29 22:38] LABS: Basophils % 0.2 % (0.0-0.8); Eosinophils # 0.1 10*3/uL (0.0-0.87); Eosinophils % 0.7 % (0.00-10.9); Hematocrit 46.9 VOL% (42.0-52.0); Hemoglobin 15.2 GM/DL (14.0-18.0); Immature Granulocytes % 0.3 %; Immature Granulocytes Absolute 0.03 #; Lymphocytes # 1.3 10*3/uL (1.4-4.0); Lymphocytes % 14.5 % (21.2-54.2); Mean Corpuscular HGB Conc 32.4 GM/DL (32-36); Mean Corpuscular Volume 93.2 FL (87-102); Mean Platelet Volume 10.8 FL (9.6-12.0); Monocytes % 6.2 % (1.7-12.7); Neutrophils % 78.1 % (38.7-73.9); Platelet Count 187 T/CUMM (130-400); Red Blood Count 5.03 MC/CUMM (3.8-5.5); Red Cell Distribution Width 12.9 % (9.3-17.3)
[2020-06-29 22:59] LABS: Bilirubin,Total 0.6 MG/DL (0.2-1.0); Calcium 9.9 MG/DL (8.5-10.1); Osmolality,Calculated 275.7 MOS/KG (273-304); Potassium 3.9 MMOL/L (3.5-5.1); Total Protein 7.8 G/DL (6.4-8.3)
[2020-06-30] MEDS ORDERED: ACETAMINOPHEN 325 MG TABLET PO PRN (00:08)
[2020-06-30] MEDS: SODIUM CHLORIDE 0.9% 1,000 ML IV SCH ×3 (00:21→18:07)
[2020-06-30 00:44] LABS: Bilirubin,Urine Negative (Negative); Blood, Urine Negative (Negative); Glucose,Urine (UA) Negative (Negative); Ketones,Urine 5 mg/dL (Negative); Mucus,Urine Many /LPF (Occasional); Nitrite,Urine Negative (Negative); Protein,Urine Negative; RBC,Urine 2 /HPF (0-4); Squamous Epithelial Cell,Urine Occasional /HPF (0-10); Urine Appearance Slightly Hazy (Clear); Urine Color Yellow (Yellow); Urine Specific Gravity 1.017 (1.001-1.035); Urine Urobilinogen < 2.0 EU/DL (0.2-1.0); WBC,Urine 1 /HPF (0-6)
[2020-06-30 04:09] LABS: Basophils % 0.2 % (0.0-0.8); Hematocrit 41.9 VOL% (42.0-52.0); Hemoglobin 13.8 GM/DL (14.0-18.0); Immature Granulocytes % 0.4 %; Immature Granulocytes Absolute 0.03 #; Lymphocytes # 0.9 10*3/uL (1.4-4.0); Lymphocytes % 10.7 % (21.2-54.2); Mean Corpuscular HGB Conc 32.9 GM/DL (32-36); Mean Corpuscular Volume 93.3 FL (87-102); Mean Platelet Volume 10.6 FL (9.6-12.0); Monocytes % 5.5 % (1.7-12.7); Neutrophils % 83.2 % (38.7-73.9); Platelet Count 145 T/CUMM (130-400); Red Blood Count 4.49 MC/CUMM (3.8-5.5); Red Cell Distribution Width 13.1 % (9.3-17.3); White Blood Count 8.5 T/CUMM (4-12)
[2020-06-30] MEDS: ONDANSETRON 4 MG/2 ML VIAL IV PRN ×3 (04:30→22:20)
[2020-06-30 04:37] LABS: Albumin 3.4 G/DL (3.4-5.0); Bilirubin,Total 1.3 MG/DL (0.2-1.0); Osmolality,Calculated 278.5 MOS/KG (273-304); Potassium 4.2 MMOL/L (3.5-5.1); Total Protein 6.8 G/DL (6.4-8.3)
[2020-06-30] MEDS ORDERED: PROMETHAZINE 25 MG/1 ML VIAL ONE (06:00)
[2020-06-30] MEDS ORDERED: PROMETHAZINE 25 MG/1 ML VIAL IM STA (06:02)
[2020-06-30] MEDS: PANTOPRAZOLE 40 MG VIAL IV SCH (09:04)
[2020-06-30] MEDS: HYDROmorphone 2 MG/1 ML VIAL IV PRN ×3 (10:19→22:22)
[2020-06-30] MEDS ORDERED: PHENOL 1.4% THROAT SPRAY 177 ML BOTTLE PO PRN (21:09)
[2020-07-01] MEDS: SODIUM CHLORIDE 0.9% 1,000 ML IV SCH (01:52)
[2020-07-01 07:43] VITALS: BP 139/71
[2020-07-01] MEDS: PANTOPRAZOLE 40 MG VIAL IV SCH (09:32)
== END 2020-07-01 12:48 | disposition home or self-care (01) | DRG 390 ==
LOC: N.ED 21:22 → N.EDINP 23:27 → N.5E 06-30 16:00
PROVIDERS: ADMIT Surgery; ATTEND Surgery

== ENCOUNTER 2021-12-30 03:50 | Inpatient (IN) ==
[2021-12-30] MEDS ORDERED: ONDANSETRON 4 MG/2 ML VIAL IV STA (04:09)
[2021-12-30] MEDS ORDERED: SODIUM CHLORIDE 0.9% 500 ML IV STA ×2 (04:09→04:54)
[2021-12-30] MEDS ORDERED: HYDROmorphone 1 MG/1 ML SYRINGE IV STA (04:09)
[2021-12-30 04:19] LABS: Basophils % 0.2 % (0.0-0.8); Eosinophils % 0.1 % (0.00-10.9); Hematocrit 45.8 VOL% (42.0-52.0); Hemoglobin 15.4 GM/DL (14.0-18.0); Immature Granulocytes % 0.4 %; Immature Granulocytes Absolute 0.04 #; Lymphocytes # 1.3 10*3/uL (1.4-4.0); Lymphocytes % 11.7 % (21.2-54.2); Mean Corpuscular HGB Conc 33.6 GM/DL (32-36); Mean Corpuscular Volume 91.6 FL (87-102); Mean Platelet Volume 10.6 FL (9.6-12.0); Monocytes # 0.4 10*3/uL (0.11-0.8); Monocytes % 4.1 % (1.7-12.7); Neutrophils % 83.5 % (38.7-73.9); Platelet Count 199 T/CUMM (130-400); Red Cell Distribution Width 12.6 % (9.3-17.3); White Blood Count 10.8 T/CUMM (4-12)
[2021-12-30] MEDS ORDERED: PROMETHAZINE 25 MG/1 ML VIAL IM STA (04:23)
[2021-12-30] MEDS ORDERED: PROMETHAZINE 25 MG/1 ML VIAL ONE (04:24)
[2021-12-30 04:39] LABS: Platelet Estimate Adequate
[2021-12-30 04:43] LABS: Albumin 4.1 G/DL (3.4-5.0); Bilirubin,Total 0.9 MG/DL (0.20-1.00); Calcium 9.7 MG/DL (8.5-10.1); Osmolality,Calculated 281.4 MOS/KG (273-304); Potassium 4.5 MMOL/L (3.5-5.1); Total Protein 7.5 G/DL (6.4-8.2)
[2021-12-30] MEDS ORDERED: ACETAMINOPHEN 325 MG TABLET PO PRN (05:16)
[2021-12-30] MEDS ORDERED: ONDANSETRON 4 MG/2 ML VIAL IV PRN ×2 (05:16→13:10)
[2021-12-30] MEDS: SODIUM CHLORIDE 0.9% 1,000 ML IV SCH ×2 (05:49→13:39)
[2021-12-30] MEDS: HYDROmorphone 1 MG/1 ML SYRINGE IV PRN ×2 (06:28→13:39)
[2021-12-30 06:30] LABS: Bacteria,Urine Occasional /HPF (Few); Mucus,Urine Few /LPF (Occasional); RBC,Urine 2 /HPF (0-4); Squamous Epithelial Cell,Urine Occasional /HPF (0-10)
[2021-12-30] MEDS ORDERED: PIPERACILLIN/TAZOBACTAM 3,375 MG in SODIUM CHLORIDE 0.9% 100 ML IV SCH (06:30)
[2021-12-30 06:31] LABS: Bilirubin,Urine Negative (Negative); Blood, Urine Negative (Negative); Glucose,Urine (UA) Negative (Negative); Ketones,Urine 15 mg/dL (Negative); Nitrite,Urine Negative (Negative); Protein,Urine Negative (Negative); Urine Appearance Clear (Clear); Urine Color Yellow (Yellow); Urine pH 6.5 (4.5-8.0)
[2021-12-30] MEDS: PANTOPRAZOLE 40 MG VIAL IV SCH (09:22)
[2021-12-30] MEDS ORDERED: METOPROLOL TARTRATE 25 MG TABLET PO SCH (21:00)
[2021-12-31] MEDS: SODIUM CHLORIDE 0.9% 1,000 ML IV SCH ×2 (04:53→09:55)
[2021-12-31 06:22] LABS: Albumin 2.9 G/DL (3.4-5.0); Bilirubin,Total 0.8 MG/DL (0.20-1.00); Calcium 8.5 MG/DL (8.5-10.1); Potassium 4.1 MMOL/L (3.5-5.1); Total Protein 5.9 G/DL (6.4-8.2)
[2021-12-31 07:08] LABS: Basophils % 0.1 % (0.0-0.8); Eosinophils # 0.1 10*3/uL (0.0-0.87); Eosinophils % 1.3 % (0.00-10.9); Hematocrit 40.6 VOL% (42.0-52.0); Immature Granulocytes % 0.3 %; Immature Granulocytes Absolute 0.02 #; Lymphocytes # 1.5 10*3/uL (1.4-4.0); Lymphocytes % 21.7 % (21.2-54.2); Mean Corpuscular HGB Conc 32.8 GM/DL (32-36); Mean Corpuscular Volume 94.4 FL (87-102); Mean Platelet Volume 11.2 FL (9.6-12.0); Monocytes # 0.6 10*3/uL (0.11-0.8); Monocytes % 8.5 % (1.7-12.7); Neutrophils % 68.1 % (38.7-73.9); Platelet Count 161 T/CUMM (130-400); Red Cell Distribution Width 12.8 % (9.3-17.3); White Blood Count 6.7 T/CUMM (4-12)
[2021-12-31 07:14] LABS: Hemoglobin 13.3 GM/DL (14.0-18.0)
[2021-12-31 07:31] LABS: Platelet Estimate Normal
[2021-12-31 07:32] LABS: Anisocytosis Slight; Macrocytosis Slight
[2021-12-31] MEDS: PANTOPRAZOLE 40 MG VIAL IV SCH (09:55)
[2021-12-31 15:48] VITALS: BP 119/71
== END 2021-12-31 15:25 | disposition home or self-care (01) | DRG 390 ==
LOC: N.3E 03:50 → N.ED 03:50 → N.3E 07:11
PROVIDERS: ADMIT Surgery; ATTEND Surgery